=== PATIENT | male | born 1990 | race African-American/Black ===

== ENCOUNTER 2016-08-02 10:08 | Emergency (ER) | payer OTHER ==
[~2016-08-02] VITALS: Ht 177.8 cm; Wt 108.9 kg
[2016-08-02] MEDS ORDERED: NKM (10:18)
[2016-08-02] MEDS ORDERED: DOXYCYCLINE MO100 MG ORAL (10:32)
--- NOTE | 2016-08-02 10:36 | Emergency Room Report ---
History of Present Illness General Chief Complaint: Male Urogenital Problems Source: Patient Present Illness HPI 25 YO M presents with dysuria for 2-3 days and whitish discharge following multiple times unprotected sex with partner who had also had unprotected sex with another person. She herself tested + for syphillis recently. Patient's discharge assoc with bilateral inguinal pain, swelling. States he has "rash" on penis as well. Previous history of gonorrhea. Allergies: Coded Allergies: Fruit Juice (Verified Allergy, Unknown, 08/02/16) PEANUT (Verified Allergy, Unknown, 08/02/16) Patient History Past Surgical History: none Pertinent Family History: none Social History: Denies: alcohol use, drug use, smoking Immunizations: UTD Reviewed Nursing Documentation: PMH: Agreed, PSxH: Agreed Nursing Documentation-PMH Past Medical History: No Stated History Review of Systems All Other Systems: negative except mentioned in HPI Physical Exam Vital Signs Date Time Temp Pulse Resp B/P Pulse Ox O2 Delivery O2 Flow Rate FiO2 08/02/16 10:13 98.4 88 16 144/94 97 Room Air Sp02 EP Interpretation: reviewed, normal General Appearance: normal inspection, well appearing, no apparent distress, alert Head: atraumatic ENT: normal ENT inspection, hearing grossly normal, normal voice Neck: normal inspection, full range of motion, supple, no bony tend Respiratory: normal inspection, lungs clear, normal breath sounds, no respiratory distress, no retraction, no wheezing Cardiovascular #1: regular rate, rhythm, no edema Gastrointestinal: normal inspection, normal bowel sounds, non tender, soft, no guarding, no hernia Genitourinary: no CVA tenderness, scrotum normal, other - Penile shaft: ? ulceration at base, non tender. No vesicles. No active penile discharge. Bilateral L>R inguinal ttp Medical Decision Making Diagnostic Impression: Primary Impression: Dysuria ER Course 25 YO M with dysuria, self reported discharge with recent unprotected sex. Painless ulceration c/w primary syphillis. Partner also infected. Discharge more likely G&C infection Will tx with IM ceftriaxone here and Rx Doxy which will cover Syphillis and G&C Last Vital Signs Date Time Temp Pulse Resp B/P Pulse Ox O2 Delivery O2 Flow Rate FiO2 08/02/16 10:13 98.4 88 16 144/94 97 Room Air Status: improved Disposition: HOME, SELF-CARE Condition: Improved Scripts Doxycycline Monohydrate* (DOXYCYCLINE MONOHYDRATE*) 100 Mg Capsule 100 MG ORAL Q12H for 10 Days, #20 CAP 0 Refills Prov: LISA MASTERSON M.D. 08/02/16 Patient Instructions: Urethritis, Adult Additional Instructions: - take all doxycycline as prescibed - Follow up with your doctor as needed LISA MASTERSON M.D. Aug 02, 2016 10:36
[2016-08-02] MEDS ORDERED: Lidocaine 1% MPF 10mg/ml 5ml ONE (10:38)
[2016-08-02 11:12] VITALS: BP 141/89
== END 2016-08-02 11:15 | disposition home or self-care (01) ==
LOC: EMR 10:20
DX: R30.0 Dysuria (principal); Z91.010 Allergy to peanuts; Z91.018 Allergy to other foods
CPT/HCPCS: 96372; 99283; J0696

== ENCOUNTER 2016-09-04 18:08 | Emergency (ER) | payer OTHER ==
[~2016-09-04] VITALS: Ht 177.8 cm; Wt 104.3 kg
[~2016-09-04 18:08] MED LIST: DOXYCYCLINE MO100 MG ORAL; NKM
[2016-09-04 18:28] VITALS: BP 128/87
--- NOTE | 2016-09-04 18:54 | Emergency Room Report ---
History of Present Illness General Chief Complaint: Male Urogenital Problems Source: Patient Present Illness HPI 25-year-old male presents emergency department complaining of penile discharge and dysuria x2 days. Patient reports recent unprotected intercourse and that he was contacted by his partner and was advised that she is receiving treatment for STDs. Patient denies fevers or chills patient denies penile lesions, hematuria, abdominal pain or palpable lymph nodes. Denies CP, Palpitations, LOC , AMS, dizziness, Changes in Vision, Sensation, paresthesias, or a sudden severe headache. Allergies: Coded Allergies: Fruit Juice (Verified Allergy, Unknown, 08/02/16) PEANUT (Verified Allergy, Unknown, 08/02/16) Patient History Past Medical History: see triage record Past Surgical History: none Pertinent Family History: none Immunizations: UTD Reviewed Nursing Documentation: PMH: Agreed, PSxH: Agreed Nursing Documentation-PMH Past Medical History: No Stated History Review of Systems All Other Systems: negative except mentioned in HPI Physical Exam Vital Signs Date Time Temp Pulse Resp B/P Pulse Ox O2 Delivery O2 Flow Rate FiO2 09/04/16 18:24 98.4 78 16 128/87 99 Room Air Sp02 EP Interpretation: reviewed, normal General Appearance: no apparent distress, alert, GCS 15, non-toxic Head: normocephalic, atraumatic Eyes: bilateral eye PERRL, bilateral eye normal inspection ENT: hearing grossly normal, normal pharynx, no angioedema, normal voice Neck: full range of motion, supple/symm/no masses Respiratory: chest non-tender, lungs clear, normal breath sounds, speaking full sentences Cardiovascular #1: regular rate, rhythm, no edema Genitourinary: no CVA tenderness, other - no penile lesions, clear d/c noted, no tender palpable LAD. Musculoskeletal: back normal, gait/station normal, normal range of motion, non- tender, no calf tenderness Neurologic: alert, oriented x3, responsive, motor strength/tone normal, sensory intact, speech normal Psychiatric: judgement/insight normal, memory normal, mood/affect normal, no suicidal/homicidal ideation Skin: normal color, no rash, warm/dry, well hydrated Lymphatic: no adenopathy Medical Decision Making PA Attestation Dr. Tyson is my supervising Physician whom patient management has been discussed with. Diagnostic Impression: Primary Impression: Penile discharge Additional Impressions: Exposure to venereal disease UTI (urinary tract infection) Qualified Codes: N39.0 - Urinary tract infection, site not specified; R31.9 - Hematuria, unspecified ER Course Pt. presents to the ED c/o Penile d/c and dysuria x 2 days. His partner contacted him to advise him that she was receiving treatment for STD. Ddx considered but are not limited to UTi , STI, G & C, trichomonas, Urethritis , Vital signs: are WNL, pt. is afebrile H&PE are most consistent with exposure to venereal disease and penile d/c ORDERS: - UA: WBC's and few bacteria. - G & C RNA of Urine: Pending ED INTERVENTIONS: -250mg Rocephin IM DISCHARGE: At this time pt. is stable for d/c to home. Will provide printed patient care instructions, and any necessary prescriptions. Care plan and follow up instructions have been discussed with the patient prior to discharge. Labs Test 09/04/16 18:38 Urine Color Yellow Urine Appearance Clear Urine pH 5 (4.5-8.0) Urine Specific Ethel 1.020 (1.005-1.035) Urine Protein Negative (NEGATIVE) Urine Glucose (UA) Negative (NEGATIVE) Urine Ketones Negative (NEGATIVE) Urine Occult Blood 3+ (NEGATIVE) Urine Nitrite Negative (NEGATIVE) Urine Bilirubin Negative (NEGATIVE) Urine Urobilinogen Normal MG/DL (0.0-1.0) Urine Leukocyte Esterase 1+ (NEGATIVE) Urine RBC 0-2 /HPF (0 - 0) Urine WBC 30-40 /HPF (0 - 0) Urine Squamous Epithelial Cells None /LPF (NONE/OCC) Urine Bacteria Occasional /HPF (NONE) Last Vital Signs Date Time Temp Pulse Resp B/P Pulse Ox O2 Delivery O2 Flow Rate FiO2 09/04/16 18:28 98.4 78 16 128/87 99 Room Air Disposition: HOME, SELF-CARE Condition: Stable Scripts Phenazopyridine Hcl* (PYRIDIUM*) 200 Mg Tablet 200 MG ORAL THREE TIMES A DAY, #14 TAB 0 Refills Prov: Tiera Peña P.A. 09/04/16 Doxycycline Hyclate* (VIBRAMYCIN*) 100 Mg Capsule 100 MG ORAL EVERY 12 HOURS for 7 Days, #14 CAP 0 Refills Prov: Tiera Peña P.A. 09/04/16 Patient Instructions: Urethritis, Adult Additional Instructions: Take medications as directed. Follow up with PCP in 3-5 days Return sooner to ED if new symptoms occur, or current symptoms become worse. - Please note that this Emergency Department Report was dictated using [employer] spooler technology software, occasionally this can lead to erroneous entry secondary to interpretation by the dictation equipment. Tiera Peña Sep 04, 2016 18:54
[2016-09-04] MEDS ORDERED: VIBRAMYCIN100 MG ORAL (18:55)
[2016-09-04] MEDS ORDERED: PHENAZOPYRIDIN200 MG ORAL (18:55)
[2016-09-04] MEDS ORDERED: Lidocaine 1% MPF 10mg/ml 5ml ONE (18:56)
[2016-09-04 19:41] LABS: APPEARANCE,URINE CLEAR; KETONES,URINE NEGATIVE (NEGATIVE); LEUKOCYTE ESTERASE ,URINE 1+ (NEGATIVE); NITRITE,URINE NEGATIVE (NEGATIVE); PH,URINE 5 (4.5-8.0); PROTEIN,URINE NEGATIVE (NEGATIVE); UROBILINOGEN,URINE NORMAL MG/DL (0.0-1.0)
[2016-09-04 19:46] VITALS: BP 151/97
[2016-09-04 20:01] LABS: BACTERIA,URINE OCCASIONAL /HPF; RBC,URINE 0-2 /HPF (0 - 0); WBC,URINE 30-40 /HPF (0 - 0)
== END 2016-09-04 19:47 | disposition home or self-care (01) ==
LOC: EMR 19:00
DX: R36.9 Urethral discharge, unspecified (principal); N39.0 Urinary tract infection, site not specified; Z20.2 Contact with and (suspected) exposure to infections with a predominantly sexual mode of transmission; Z91.010 Allergy to peanuts; Z91.018 Allergy to other foods
CPT/HCPCS: 81003; 87086; 87491; 87590; 96372; 99284; J0696

== ENCOUNTER 2017-01-14 05:34 | Emergency (ER) | payer OTHER ==
[~2017-01-14] VITALS: Ht 177.8 cm; Wt 106.1 kg
[~2017-01-14 05:34] MED LIST changes: +PHENAZOPYRIDIN200 MG ORAL; +VIBRAMYCIN100 MG ORAL
[2017-01-14] MEDS ORDERED: Lidocaine 1% MPF 10mg/ml 5ml ONE (06:08)
[2017-01-14] MEDS ORDERED: Azithromycin 250mg tab ORAL ONE (06:15)
[2017-01-14 06:24] VITALS: BP 124/86
--- NOTE | 2017-01-14 22:06 | Emergency Room Report ---
History of Present Illness General Chief Complaint: Male Urogenital Problems Source: Patient Present Illness HPI 26-year-old male presents to ED for evaluation. States that his girlfriend was diagnosed with gonorrhea and told him to get checked out. Patient states he noticed white discharge starting this morning. Denies dysuria. Denies fevers or chills. Patient states he's been here in the past with similar presentation and was treated accordingly for STD. No other aggravating or relieving factors. Denies any other associated symptoms Allergies: Coded Allergies: Fruit Juice (Verified Allergy, Unknown, 08/02/16) PEANUT (Verified Allergy, Unknown, 08/02/16) Patient History Past Medical History: none Past Surgical History: none Pertinent Family History: none Social History: Denies: alcohol use, drug use, smoking Immunizations: UTD Reviewed Nursing Documentation: PMH: Agreed, PSxH: Agreed Nursing Documentation-PMH Past Medical History: No Stated History Review of Systems All Other Systems: negative except mentioned in HPI Physical Exam Vital Signs Date Time Temp Pulse Resp B/P Pulse Ox O2 Delivery O2 Flow Rate FiO2 01/14/17 05:52 98.1 88 16 124/86 98 Room Air Sp02 EP Interpretation: reviewed, normal General Appearance: no apparent distress, alert, GCS 15, non-toxic Head: normocephalic, atraumatic Eyes: bilateral eye PERRL, bilateral eye normal inspection ENT: hearing grossly normal, normal pharynx, no angioedema, normal voice Neck: full range of motion, supple/symm/no masses Respiratory: chest non-tender, lungs clear, normal breath sounds, speaking full sentences Cardiovascular #1: regular rate, rhythm, no edema Cardiovascular #2: 2+ carotid (R), 2+ carotid (L), 2+ radial (R), 2+ radial (L) , 2+ dorsalis pedis (R), 2+ dorsalis pedis (L) Gastrointestinal: normal bowel sounds, non tender, soft, non-distended, no guarding, no rebound Rectal: deferred Genitourinary: normal inspection, no CVA tenderness Musculoskeletal: back normal, gait/station normal, normal range of motion, non- tender Neurologic: alert, oriented x3, responsive, motor strength/tone normal, sensory intact, speech normal Psychiatric: judgement/insight normal, memory normal, mood/affect normal, no suicidal/homicidal ideation Reflexes: 3+ bicep (R), 3+ bicep (L), 3+ tricep (R), 3+ tricep (L), 3+ knee (R) , 3+ knee (L) Skin: normal color, no rash, warm/dry, well hydrated Lymphatic: no adenopathy Medical Decision Making Diagnostic Impression: Primary Impression: Penile discharge ER Course Hospital Course 26-year-old male presents to ED complaining of white discharge. h/o unprotected sex Differential diagnoses include: UTI, cystitis, pyelonephritis Clinical course Patient placed on stretcher. After initial history and physical I decided to treat the patient clinically for STD patient given Rocephin/azithromycin in ED Diagnosis - penile discharge Stable and discharged home. Instructed to followup with PMD/STD clinic. Return to ED if symptoms recur or worsen Last Vital Signs Date Time Temp Pulse Resp B/P Pulse Ox O2 Delivery O2 Flow Rate FiO2 01/14/17 06:24 98.1 16 124/86 98 Room Air 01/14/17 05:52 88 Status: improved Disposition: HOME, SELF-CARE Condition: Stable Referrals: NOT CHOSEN IPA/,REFERRING (PCP) Patient Instructions: Sexually Transmitted Disease, [id number] ANNAMARIE HAMPTON M.D. Jan 14, 2017 22:06
== END 2017-01-14 06:25 | disposition home or self-care (01) ==
LOC: EMR 06:15
DX: R36.9 Urethral discharge, unspecified (principal); Z91.010 Allergy to peanuts; Z91.018 Allergy to other foods
CPT/HCPCS: 96372; 99283; J0696

== ENCOUNTER 2017-03-22 02:06 | Emergency (ER) | payer OTHER ==
[~2017-03-22] VITALS: Ht 177.8 cm; Wt 110.2 kg
[2017-03-22 02:45] VITALS: BP 130/84
[2017-03-22] MEDS ORDERED: Azithromycin 250mg tab ORAL ONE (02:45)
[2017-03-22] MEDS ORDERED: IBUPROFEN600 MG ORAL (02:58)
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
[2017-03-22 03:07] VITALS: BP 130/84
--- NOTE | 2017-03-22 10:29 | Diagnostic Imaging Report ---
Indication: left ankle pain Comparison: None Findings: 3 views of the left ankle obtained. There is a long compression plate, fixation screws in the lateral malleolus extending very high into the mid shaft of the fibula. The upper extent of the hardware is not seen. There also syndesmosis screws present. There is moderate narrowing and osteophyte formation involving the tibiotalar joint. Moderate postfracture deformity of the distal fibula also demonstrated. No acute fracture identified. Impression: Evidence of previous ankle fracture status post plate reduction as discussed above. No acute injury identified. Osteoarthritis
== END 2017-03-22 03:07 | disposition home or self-care (01) ==
LOC: EMR 02:49
DX: S93.402A Sprain of unspecified ligament of left ankle, initial encounter (principal); N21.1 Calculus in urethra; I10 Essential (primary) hypertension; Z91.010 Allergy to peanuts; Z91.018 Allergy to other foods; X58.XXXA Exposure to other specified factors, initial encounter; Y92.9 Unspecified place or not applicable
CPT/HCPCS: 99283